=== PATIENT | male | born 1955 | race Hispanic/Latino ===

== ENCOUNTER 2021-09-23 13:16 | Emergency (ER) | payer OTHER ==
--- NOTE | 2021-09-23 13:56 | EDPHYS ---
Physician Documentation [facility] Name: Wilmer Schultz Age: 66 yrs Sex: Male : 1955 Arrival Date: 09/23/2021 Time: 13:19 Bed 12 Private MD: ED Physician Homar Barker HPI: 09/23 13:53 This 66 yrs old Male presents to ER via Ambulatory with complaints of Ear Pain.rn 13:53 The patient presents with pain. The complaints affect the right ear. Onset: The rn symptoms/episode began/occurred last night. Modifying factors: The symptoms are alleviated by nothing, the symptoms are aggravated by pulling on ears. Associated signs and symptoms: Pertinent negatives: fever, shortness of breath, sore throat, vertigo, vomiting. Severity of symptoms: At their worst the symptoms were moderate in the emergency department the symptoms have improved. The patient has not experienced similar symptoms in the past. The patient has not recently seen a physician. Patient reports pain to right ear that began last night. Denies any injury. Denies any fever/congestion/cough/shortness of breath.. Historical: - Allergies: 13:25 No Known Allergies; tw2 - Home Meds: 13:25 None [Active]; tw2 - PMHx: 13:25 Diabetes mellitus; "control w/diet"; tw2 - PSHx: 13:25 hernia repair; tw2 - Immunization history:: Client reports receiving the Marco Antonio \\T\\ Marco Antonio single-dose vaccine. - Social history:: Smoking status: Patient denies any tobacco usage or history of. - Family history:: not pertinent. - Hospitalizations: : No recent hospitalization is reported. ROS: 13:53 Constitutional: Negative for fever, chills, and weight loss, Eyes: Negative for injury, rn pain, redness, and discharge, ENT: Positive for pain to right ear Neck: Negative for injury, pain, and swelling, Respiratory: Negative for shortness of breath, cough, wheezing, and pleuritic chest pain, Neuro: Negative for headache, weakness, numbness, tingling, and seizure. Exam: 13:53 Constitutional: This is a well developed, well nourished patient who is awake, alert, rn and in no acute distress. Head/Face: Normocephalic, atraumatic. Eyes: Periorbital areas with no swelling, redness, or edema. ENT: Right TM with erythema, no fluid identified, external canal normal without swelling, no foreign body noted, no perforation noted Vital Signs: 13:24 BP 115 / 92; Pulse 80; Resp 18; Temp 97.4(TE); Pulse Ox 100% on R/A; tw2 13:56 BP 118 / 90; Pulse 82; Resp 18; Pulse Ox 100% on R/A; ld1 MDM: 13:42 Patient medically screened. rn 13:53 Differential diagnosis: otitis media, acute otalgia, serotympanum, Acute myringitis. rn Data reviewed: vital signs, nurses notes, and as a result, I will discharge patient. Counseling: I had a detailed discussion with the patient and/or guardian regarding: the historical points, exam findings, and any diagnostic results supporting the discharge/admit diagnosis, the need for outpatient follow up, to return to the emergency department if symptoms worsen or persist or if there are any questions or concerns that arise at home. Special discussion: I discussed with the patient/guardian in detail that at this point there is no indication for admission to the hospital. It is understood, however, that if the symptoms persist or worsen the patient needs to return immediately for re-evaluation. Administered Medications: No medications were administered Disposition Summary: 09/23/21 13:55 Discharge Ordered Location: Home rn Problem: new rn Symptoms: are unchanged rn Condition: Stable rn Diagnosis - Acute myringitis, right ear rn Followup: rn - With: Private Physician - When: As needed - Reason: Recheck today's complaints, Re-evaluation by your physician Discharge Instructions: - Discharge Summary Sheet rn - Earache, Adult rn Forms: - Medication Reconciliation Form rn - Thank You Letter rn - Antibiotic kiln burner - Prescription Opioid Use rn Prescriptions: - Augmentin 875-125 mg Oral Tablet - take 1 tablet by ORAL route every 12 hours for 10 days; 20 tablet; Refills: 0, rn Product Selection Permitted - Cortisporin-TC 3.3-3-10-0.5 mg/mL Otic Suspension - instill 4 drops by OTIC route every 6 hours; 1 bottle; Refills: 0, Product rn Selection Permitted Signatures: Homar Barker MD MD rn Wise, Tara, RN RN tw2
--- NOTE | 2021-09-23 13:56 | ER ---
Nurse's Notes [facility] Name: iWlmer Schultz Age: 66 yrs Sex: Male : 1955 Arrival Date: 09/23/2021 Time: 13:19 Bed 12 Private MD: Diagnosis: Acute myringitis, right ear Presentation: 09/23 13:24 Chief complaint: Patient states: my RIGHT ear started hurting last night. it feels tw2 really hot.. Coronavirus screen: At this time, the client does not indicate any symptoms associated with coronavirus-19. Ebola Screen: Patient denies travel to an Ebola-affected area in the 21 days before illness onset. Initial Sepsis Screen: Does the patient meet any 2 criteria? No. Patient's initial sepsis screen is negative. Does the patient have a suspected source of infection? No. Patient's initial sepsis screen is negative. Risk Assessment: Do you want to hurt yourself or someone else? Patient reports no desire to harm self or others. Onset of symptoms was September 23, 2021. 13:24 Method Of Arrival: Ambulatory tw2 13:24 Acuity: TOYA 4 tw2 Triage Assessment: 13:27 General: Appears in no apparent distress. slender, Behavior is calm, cooperative, tw2 appropriate for age. Pain: Complains of pain in right ear. EENT: Reports pain since last night. Historical: - Allergies: 13:25 No Known Allergies; tw2 - Home Meds: 13:25 None [Active]; tw2 - PMHx: 13:25 Diabetes mellitus; "control w/diet"; tw2 - PSHx: 13:25 hernia repair; tw2 - Immunization history:: Client reports receiving the Marco Antonio \\T\\ Marco Antonio single-dose vaccine. - Social history:: Smoking status: Patient denies any tobacco usage or history of. - Family history:: not pertinent. - Hospitalizations: : No recent hospitalization is reported. Screenin:56 Abuse screen: Denies threats or abuse. Denies injuries from another. Nutritional ld1 screening: No deficits noted. Tuberculosis screening: No symptoms or risk factors identified. Fall Risk None identified. Assessment: 13:56 General: Appears in no apparent distress. comfortable, Behavior is calm, cooperative, ld1 appropriate for age. Pain: Complains of pain in right ear Pain does not radiate. Pain currently is 5 out of 10 on a pain scale. Quality of pain is described as throbbing, Pain began 1 day ago. Is continuous. Neuro: Level of Consciousness is awake, alert, obeys commands, Oriented to person, place, time, situation. Cardiovascular: Capillary refill < 3 seconds Patient's skin is warm and dry. Respiratory: Airway is patent Respiratory effort is even, unlabored, Respiratory pattern is regular, symmetrical. GI: Abdomen is flat, non-distended. : No signs and/or symptoms were reported regarding the genitourinary system. EENT: Ear canal clear on right ear. Derm: No signs and/or symptoms reported regarding the dermatologic system. Musculoskeletal: No signs and/or symptoms reported regarding the musculoskeletal system. Vital Signs: 13:24 BP 115 / 92; Pulse 80; Resp 18; Temp 97.4(TE); Pulse Ox 100% on R/A; tw2 13:56 BP 118 / 90; Pulse 82; Resp 18; Pulse Ox 100% on R/A; ld1 ED Course: 13:19 Patient arrived in ED. mr 13:25 Triage completed. tw2 13:27 Arm band placed on. tw2 13:42 Homar Barker MD is Attending Physician. rn 13:54 Marge Alcantara, NANCY is Primary Nurse. ld1 13:56 Patient has correct armband on for positive identification. Bed in low position. Call ld1 light in reach. Side rails up X2. Pulse ox on. NIBP on. Door closed. Noise minimized. 13:56 No provider procedures requiring assistance completed. Patient did not have IV access ld1 during this emergency room visit. Administered Medications: No medications were administered Outcome: 13:55 Discharge ordered by . rn 14:03 Discharged to home ambulatory. ld1 14:03 Condition: stable 14:03 Discharge instructions given to patient, Instructed on discharge instructions, follow up and referral plans. medication usage, Demonstrated understanding of instructions, follow-up care, medications, Prescriptions given X 2. 14:03 Patient left the ED. ld1 Signatures: Ana M Ruelas Homar Barker MD MD rn Wise, Tara, RN RN tw2 Marge Alcantara, NANCY RN ld1
[2021-09-23 14:07] VITALS: TEMP 97.4; O2SAT 100
[2021-09-23 14:09] VITALS: BP 118/90
== END 2021-09-23 14:03 | disposition home or self-care (01) ==
LOC: ER 13:16
DX: H73.001 Acute myringitis, right ear (principal); E11.9 Type 2 diabetes mellitus without complications
CPT/HCPCS: 99283